=== PATIENT | female | born 1960 | race Two or more races ===

== ENCOUNTER 2016-07-29 01:09 | Emergency (ER) | payer OTHER ==
--- NOTE | 2016-07-29 08:36 | RAD ---
EXAMINATION:HAND-RIGHT 3 VIEWS Clinical indication: Ground-level fall. Right hand pain. Initial encounter. Technique:3 views of the right hand were obtained. Comparison: None FINDINGS: No acute fracture or focal destruction is identified. An enchondroma is noted the distal aspect of the right second metacarpal. No aggressive changes are identified. The joint space relationships are maintained. No soft tissue abnormality is identified. IMPRESSION: No fracture or dislocation is identified. There is an enchondroma distal aspect right second metacarpal.
== END 2016-07-29 03:06 | disposition home or self-care (01) ==
LOC: ED 01:09
DX: S80.219A Abrasion, unspecified knee, initial encounter (principal); D16.11 Benign neoplasm of short bones of right upper limb; S63.501A Unspecified sprain of right wrist, initial encounter; Y09 Assault by unspecified means; Y92.481 Parking lot as the place of occurrence of the external cause